=== PATIENT | female | born 2000 ===

== ENCOUNTER 2022-10-17 09:17 | Outpatient (CLI) | payer OTHER | END 2022-10-17 12:32 | disposition home or self-care (01) | LOC: PRENATAL 09:17 | PROVIDERS: ATTEND Obstetrics & Gynecology Maternal & Fetal Medicine | DX: O36.80X0 Pregnancy with inconclusive fetal viability, not applicable or unspecified (principal); Z36.82 Encounter for antenatal screening for nuchal translucency; O99.210 Obesity complicating pregnancy, unspecified trimester; Z36.9 Encounter for antenatal screening, unspecified; Z3A.11 11 weeks gestation of pregnancy ==

== ENCOUNTER 2023-02-21 13:40 | Outpatient (CLI) | payer OTHER | END 2023-02-21 13:45 | disposition home or self-care (01) | LOC: PRENATAL 13:40 | PROVIDERS: ATTEND Obstetrics & Gynecology Maternal & Fetal Medicine | DX: O26.849 Uterine size-date discrepancy, unspecified trimester (principal); O99.210 Obesity complicating pregnancy, unspecified trimester; Z3A.29 29 weeks gestation of pregnancy ==

== ENCOUNTER 2023-03-26 14:49 | Outpatient (CLI) | payer OTHER | END 2023-03-26 14:50 | disposition home or self-care (01) | LOC: PRENATAL 14:49 | PROVIDERS: ATTEND Obstetrics & Gynecology Maternal & Fetal Medicine | DX: O26.849 Uterine size-date discrepancy, unspecified trimester (principal); O36.8199 Decreased fetal movements, unspecified trimester, other fetus; Z3A.34 34 weeks gestation of pregnancy ==